=== PATIENT | female | born 1995 | race African-American/Black ===

== ENCOUNTER 2018-09-06 12:30 | Emergency (ER) | payer OTHER ==
[2018-09-06 12:50] VITALS: BP 101/62; PULSE 79; TEMP 98; BMI 23.1
[2018-09-06] MEDS ORDERED: SODIUM CHLORIDE 1,000 ML IV STA (14:20)
[2018-09-06] MEDS ORDERED: ONDANSETRON 4 MG/2 ML VIAL IVPUSH ONE (14:30)
--- NOTE | 2018-09-06 14:34 | PDOC ---
History of Present Illness - General Chief Complaint: Nausea/Vomiting Stated Complaint: DIZZINESS Time Seen by Provider: 09/06/18 14:24 History Source: Sibling Exam Limitations: No Limitations Past History - Travel Traveled outside of the country in the last 30 days: No Close contact w/someone who was outside of country & ill: No - Past Medical History Allergies/Adverse Reactions: Allergies Allergy/AdvReac Type Severity Reaction Status Date / Time shellfish derived Allergy Verified 09/06/18 12:46 Home Medications: Ambulatory Orders Cephalexin Monohydrate [Keflex -] 500 mg PO BID #14 capsule 09/06/18 Asthma: No Cancer: No Cardiac Disorders: No COPD: No Diabetes: No HTN: No Seizures: No Thyroid Disease: No - Immunization History Immunization Up to Date: Yes - Suicide/Smoking/Psychosocial Hx Smoking History: Never smoked Have you smoked in the past 12 months: No Hx Alcohol Use: No Drug/Substance Use Hx: No Hx Substance Use Treatment: No Review of Systems - Review of Systems Able to Perform ROS?: Yes Comments:: 09/06/18 18:34 CONSTITUTIONAL: Absent: fever, chills, diaphoresis, generalized weakness, malaise, loss of appetite HEENT: Absent: rhinorrhea, nasal congestion, throat pain, throat swelling, difficulty swallowing, mouth swelling, ear pain, eye pain, visual Changes CARDIOVASCULAR: Absent: chest pain, loss of consciousness, palpitations, irregular heart rate, peripheral edema RESPIRATORY: Absent: cough, shortness of breath, dyspnea with exertion, orthopnea, wheezing, stridor, hemoptysis GASTROINTESTINAL: Absent: abdominal pain, abdominal distension, nausea, vomiting, diarrhea, constipation, melena, hematochezia GENITOURINARY: Present: positive STD test. Absent: dysuria, frequency, urgency, hesitancy, hematuria, flank pain, genital pain MUSCULOSKELETAL: Present: back pain Absent: myalgia, arthralgia, joint swelling SKIN: Absent: rash, itching, pallor HEMATOLOGIC/IMMUNOLOGIC: Absent: easy bleeding, easy bruising, lymphadenopathy, frequent infections ENDOCRINE: Absent: unexplained weight gain, unexplained weight loss, heat intolerance, cold intolerance NEUROLOGIC: Absent: headache, focal weakness or paresthesias, dizziness, unsteady gait, seizure, mental status changes, bladder or bowel incontinence PSYCHIATRIC: Absent: anxiety, depression, suicidal or homicidal ideation, hallucinations. Is the patient limited Maori proficient: No *Physical Exam - Vital Signs Last Vital Signs Temp Pulse Resp BP Pulse Ox 98.0 F 79 18 101/62 100 09/06/18 12:47 09/06/18 12:47 09/06/18 12:47 09/06/18 12:47 09/06/18 12:47 - Physical Exam Comments: 09/06/18 18:36 GENERAL: Well developed, well nourished. Awake and alert. No acute distress. HEENT: Normocephalic, atraumatic. PERRLA, EOMI. No conjunctival pallor. Sclera are non- icteric. Moist mucous membranes. Oropharynx is clear. NECK: Supple. Full ROM. No JVD. Carotid pulses 2+ and symmetric, without bruits. No thyromegaly. No lymphadenopathy. CARDIOVASCULAR: Regular rate and rhythm. No murmurs, rubs, or gallops. Distal pulses are 2+ and symmetric. PULMONARY: No evidence of respiratory distress. Lungs clear to auscultation bilaterally. No wheezing, rales or rhonchi. ABDOMINAL: Soft. Non-tender. Non-distended. No rebound or guarding. No organomegaly. Normoactive bowel sounds. MUSCULOSKELETAL Normal range of motion at all joints. No bony deformities or tenderness. No CVA tenderness. EXTREMITIES: No cyanosis. No clubbing. No edema. No calf tenderness. SKIN: Warm and dry. Normal capillary refill. No rashes. No jaundice. NEUROLOGICAL: Alert, awake, appropriate. Cranial nerves 2-12 intact. No deficits to light touch and temperature in face, upper extremities and lower extremities. No motor deficits in the in face, upper extremities and lower extremities. Normoreflexic in the upper and lower extremities. Normal speech. Toes are down- going bilaterally. Gait is normal without ataxia. PSYCHIATRIC: Cooperative. Good eye contact. Appropriate mood and affect. ED Treatment Course - LABORATORY CBC & Chemistry Diagram: 09/06/18 14:39 09/06/18 14:39 *DC/Admit/Observation/Transfer Diagnosis at time of Disposition: Chlamydia contact, treated Low back pain Qualifiers: Chronicity: acute Back pain laterality: right Sciatica presence: without sciatica Qualified Code(s): M54.5 - Low back pain Qualifiers: Weeks of gestation: less than 8 weeks Qualified Code(s): Z3A.01 - Less than 8 weeks gestation of - Discharge Dispostion Disposition: HOME Condition at time of disposition: Stable Decision to Admit order: No - Prescriptions Prescriptions: Cephalexin Monohydrate [Keflex -] 500 mg PO BID #14 capsule - Referrals Referrals: Estella Bain NP [Primary Care Provider] - Fransisco Givens MD [Staff Physician] - - Patient Instructions Printed Discharge Instructions: DI for Chlamydia, DI for Low Back Pain Additional Instructions: Your evaluated for your back pain today. It is most likely muscular in nature. He may take Tylenol 650 mg every 6 hours as needed for pain. Your currently 6 weeks . The baby is in the uterus and has a heart rate of 124 bpm. You do not have an ectopic . Your also treated for your Chlamydia today. Your also having a UTI. Please take the Keflex as prescribed. Finish the entire dose and if you feel better. Please follow up with her LINE ERECTOR this week. Return to the ER for any new or worsening symptoms. - Post Discharge Activity Forms/Work/School Notes: Back to Work
[2018-09-06 15:09] LABS: BASO % 0.8 % (0-2.0); EOS % 1.2 % (0-4.5); HEMOGLOBIN 12.8 GM/dL (10.7-15.3); LYMPH % 29.7 % (8-40); MCH 29.8 pg (25.7-33.7); MCHC 33.5 g/dl (32.0-36.0); MEAN CELL VOLUME 88.8 fl (80-96); MONO % 9.5 % (3.8-10.2); NEUT % 58.8 % (42.8-82.8); PLATELET COUNT 248 K/MM3 (134-434); RBC 4.29 M/mm3 (3.60-5.2); RDW 12.3 % (11.6-15.6); WHITE BLOOD COUNT 5.4 K/mm3 (4.0-10.0)
[2018-09-06 15:18] LABS: EPI CELLS 14.3 /HPF (0-5/HPF); URINE APPEARANCE CLOUDY; URINE BACTERIA 1008.5 /hpf (NEGATIVE); URINE BILIRUBIN NEGATIVE (NEGATIVE); URINE CASTS 20 /lpf (0-8); URINE COLOR DK YELLOW; URINE GLUCOSE (UA) NEGATIVE (NEGATIVE); URINE KETONE 3+ (NEGATIVE); URINE LEUK ESTERASE 3+ (NEGATIVE); URINE NITRITE NEGATIVE (NEGATIVE); URINE PROTEIN TRACE (NEGATIVE); URINE RBC 3 /hpf (0-4); URINE WBC 33 /hpf (0-5)
[2018-09-06] MEDS ORDERED: ONDANSETRON 4 MG/2 ML VIAL ONE (15:27)
[2018-09-06 15:43] LABS: ALBUMIN 3.9 g/dl (3.4-5.0); ALK PHOS 47 U/L (45-117); ANION GAP 6 MMOL/L (8-16); BILIRUBIN,TOTAL 0.9 mg/dL (0.2-1); BLOOD UREA NITROGEN 8 mg/dL (7-18); CALCIUM 9.5 mg/dL (8.5-10.1); CHLORIDE 106 mmol/L (98-107); CO2 26 mmol/L (21-32); CREATININE 0.7 mg/dL (0.55-1.3); GLUCOSE,RANDOM 105 mg/dL (74-106); LIPASE 99 U/L (73-393); POTASSIUM 3.9 mmol/L (3.5-5.1); SGOT/AST 8 U/L (15-37); SGPT/ALT 15 U/L (13-61); SODIUM 137 mmol/L (136-145); TOT PROT 7.5 g/dl (6.4-8.2)
[2018-09-06] MEDS ORDERED: AZITHROMYCIN 500 MG TABLET PO ONE (16:07)
[2018-09-06] MEDS ORDERED: AZITHROMYCIN 250 MG TABLET ONE (16:10)
[2018-09-06] MEDS ORDERED: cefTRIAXone SODIUM 1 GM VIAL ONE (16:10)
[2018-09-06] MEDS ORDERED: CEFTRIAXONE 250 MG in DEXTROSE 5%-WATER - 50 ML IVPB ONE (16:31)
== END 2018-09-06 18:08 | disposition home or self-care (01) ==
LOC: JER 12:30
PROC: 3E0337Z Introduction of Electrolytic and Water Balance Substance into Peripheral Vein, Percutaneous Approach (ICD-10-PCS; principal; 2018-09-06)
PROC: 3E03329 Introduction of Other Anti-infective into Peripheral Vein, Percutaneous Approach (ICD-10-PCS; 2018-09-06)
PROC: 3E033GC Introduction of Other Therapeutic Substance into Peripheral Vein, Percutaneous Approach (ICD-10-PCS; 2018-09-06)
DX: O26.891 Other specified pregnancy related conditions, first trimester (principal); M54.5 Low back pain; O98.311 Other infections with a predominantly sexual mode of transmission complicating pregnancy, first trimester; A56.8 Sexually transmitted chlamydial infection of other sites; Z3A.01 Less than 8 weeks gestation of pregnancy
CPT/HCPCS: 36415; 76817-TC; 80053; 81003; 83690; 84702; 85025; 87086; 87491; 87591; 96361; 96365; 96375; 99283-25; J7030

== ENCOUNTER 2019-04-28 12:30 | Inpatient (IN) | payer OTHER ==
[2019-04-28] MEDS ORDERED: AMPICILLIN SODIUM 2 GM VIAL ONE (12:44)
[2019-04-28] MEDS ORDERED: LIDOCAINE HCL 1% PRESERVATIVE FREE - 30ML VIAL ONE (12:44)
[2019-04-28] MEDS ORDERED: OXYTOCIN 20 UNITS in 0.9% NS 20 UNIT/1,000 ML INFUS.BAG IV ONE ×2 (12:44→13:11)
[2019-04-28] MEDS: OXYTOCIN 20 UNITS in 0.9% NS 20 UNIT/1,000 ML INFUS.BAG IV SCH ×2 (13:29→19:30)
[2019-04-28] MEDS ORDERED: WITCH HAZEL 50% (TUCKS) 40 PAD/JAR PAD TP PRN (13:40)
[2019-04-28] MEDS ORDERED: BENZOCAINE 20% 57 GM BOTTLE TP PRN (13:40)
[2019-04-28] MEDS ORDERED: METHYLERGONOVINE MALEATE 0.2 MG/1 ML AMP IM PRN (13:40)
[2019-04-28] MEDS ORDERED: BISACODYL 10 MG SUPP.RECT RC PRN (13:40)
[2019-04-28] MEDS ORDERED: BENZOCAINE 28 GM HEMORRHOIDAL OINTMENT TP PRN (13:40)
--- NOTE | 2019-04-28 13:44 | HP ---
Past Medical History - Admission Chief Complaint: SROM History of Present Illness: 23yo @ 40+wks sent in from office, reported LOF 9pm, contractions No VB. +ctx. 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 Weeks Gestation by Dates: 40.1 ...EDC by Dates: 04/27/19 Heme/Onc: Yes: Anemia - Past Surgical History Past Surgical History: Yes: None Hx Myomectomy: No Hx Transabdominal Cerclage: No - Smoking History Smoking history: Never smoked Have you smoked in the past 12 months: No - Alcohol/Substance Use Hx Alcohol Use: No History of Substance Use: reports: None - Social History Usual Living Arrangement: Yes: With Parent History of Recent Travel: No Home Medications - Allergies Allergies/Adverse Reactions: Allergies Allergy/AdvReac Type Severity Reaction Status Date / Time shellfish derived Allergy Intermediate Swelling Verified 04/12/19 05:34 No Known Drug Allergies Allergy Verified 04/24/19 13:14 - Home Medications Home Medications: Ambulatory Orders Vitamins (Sjr) - 1 tab PO DAILY 01/14/19 Valacyclovir HCl [Valtrex -] 500 mg PO DAILY 04/28/19 Review of Systems - Review of Systems Constitutional: denies: No Symptoms, Chills, Diaphoresis, Fever, Lethargy, Loss of Appetite, Malaise, Night Sweats, Unintentional Wgt. Loss, Weakness, Other Cardiovascular: denies: No Symptoms, Chest Pain, Edema, Palpitations, Shortness of Breath, Other Respiratory: denies: No Symptoms, Cough, Exercise Intolerance, Hemoptysis, Orthopnea, PND, Snoring, SOB, SOB on Exertion, Wheezing, Other Gastrointestinal: denies: No Symptoms, Abdominal Pain, Bloating, Constipation, Diarrhea, Dysphagia, Indigestion, Melena, Nausea, Rectal Bleeding, Vomiting, Vomiting Blood, Other Physical Exam - Maternity Constitutional: Yes: Well Nourished, No Distress, Calm - Abdominal Exam/OB Number of Fetuses: Single Presentation: Vertex Contractions: Yes Regularity: Regular Intensity: Moderate Monitor Mode: External Heart Rate Location: [facility] Category: I Accelerations: Non-Uniform Decelerations: None - Vaginal Exam/OB Vaginal Bleediing: No Dilatation (cm): 8-9 Effacement (%): 101 Amniotic Membrane Status: Ruptured Nitrazine Test: Positive Amniotic Fluid: Yes: Meconium Stained Meconium: Light Presentation: Vertex/Position Station: -1 - Physical Exam Edema: No Problem List - Problems (1) Uterine contractions Code(s): [id number] - Assessment/Plan 23yo @ 40+wks here in labor Admit to L&D IVFs Labs Anticipate imminent Glen Rojo MD
[2019-04-28] MEDS ORDERED: ELECTROLYTE-148 SOLN 1,000 ML IV SCH (13:45)
--- NOTE | 2019-04-28 13:47 | PN ---
Delivery - Delivery Vaginal Delivery: Spontaneous Type of Anesthesia: Local Episiotomy/Laceration: Midline, 1st degree EBL (cc): 350 Delivery, Single - Stages of Labor Placenta: Yes: Spontaneous - Condition of Automotive Sales Representative/Airport Screener Present: No Gender: Male Position: Right, OA - 1 Minute Total Score: 9 5 Minutes Total Score: 9 Remarks - Remarks Remarks: of VMI from KARINA position. No nuchal. + meconium. No anesthesia. 40 weeks. Spontaneous delivery of anterior shoulder. placed on maternal abdomen. Cord clamped and cut. Weight pending to allow sufficient skin to skin. Apgars 9/ 9. Spontaneous delivery of intact placenta, 3VC. Fundus firm. Perineum inspected , first degree noted. Lidocaine injected, repaired with 3-0 vicryl. Hemostasis noted. Mother and baby doing well. Agustina Rojo MD
[2019-04-28] MEDS ORDERED: AMPICILLIN - 2 GM in SODIUM CHLORIDE 100 ML IVPB ONE (14:01)
[2019-04-28 14:17] VITALS: BMI 32.1
[2019-04-28 14:23] LABS: BASO % 0.5 % (0-2.0); EOS % 0.6 % (0-4.5); HEMATOCRIT 35.9 % (32.4-45.2); HEMOGLOBIN 11.5 GM/dL (10.7-15.3); LYMPH % 15.6 % (8-40); MCH 28.3 pg (25.7-33.7); MCHC 32.1 g/dl (32.0-36.0); MEAN CELL VOLUME 88.1 fl (80-96); MEAN PLT VOLUME 9.5 fl (7.5-11.1); MONO % 5.9 % (3.8-10.2); NEUT % 77.4 % (42.8-82.8); PLATELET COUNT 207 K/MM3 (134-434); RBC 4.08 M/mm3 (3.60-5.2); RDW 13.8 % (11.6-15.6); WHITE BLOOD COUNT 11.2 K/mm3 (4.0-10.0)
[2019-04-28 14:39] LABS: INR 0.94 (0.83-1.09); PROTHROMBIN TIME (PATIENT) 11.1 SEC (9.7-13.0)
[2019-04-28 14:41] LABS: ACTIVATED PTT 26.7 SECONDS (25.2-36.5)
[2019-04-28 14:44] LABS: CALCIUM 9.2 mg/dL (8.5-10.1); CREATININE 0.8 mg/dL (0.55-1.3); POTASSIUM 3.8 mmol/L (3.5-5.1)
[2019-04-28] MEDS: IBUPROFEN 600 MG TABLET (FP) PO PRN (15:56)
[2019-04-28] MEDS: ACETAMINOPHEN 325 MG TABLET (FP) PO PRN (15:57)
[2019-04-29] MEDS: IBUPROFEN 600 MG TABLET (FP) PO PRN (01:14)
[2019-04-29] MEDS: ACETAMINOPHEN 325 MG TABLET (FP) PO PRN (01:16)
[2019-04-29 08:00] VITALS: BP 110/61; PULSE 70; TEMP 98.3
[2019-04-29 08:09] LABS: BASO % 0.4 % (0-2.0); EOS % 1.4 % (0-4.5); HEMATOCRIT 30.9 % (32.4-45.2); HEMOGLOBIN 10.1 GM/dL (10.7-15.3); LYMPH % 18.8 % (8-40); MCH 28.6 pg (25.7-33.7); MCHC 32.7 g/dl (32.0-36.0); MEAN CELL VOLUME 87.7 fl (80-96); MEAN PLT VOLUME 9.7 fl (7.5-11.1); MONO % 9.7 % (3.8-10.2); NEUT % 69.7 % (42.8-82.8); PLATELET COUNT 192 K/MM3 (134-434); RBC 3.52 M/mm3 (3.60-5.2); RDW 13.4 % (11.6-15.6)
--- NOTE | 2019-04-29 09:36 | PN ---
Post Progress Note - Subjective Subjective: Pain controlled. Tolerating po. Ambulating w/o difficulty Type of Delivery: Vital Signs: Vital Signs Temperature 98.3 F 04/29/19 07:59 Pulse Rate 70 04/29/19 07:59 Respiratory Rate 18 04/29/19 07:59 Blood Pressure 110/61 04/29/19 07:59 O2 Sat by Pulse Oximetry (%) 100 04/28/19 15:10 Uterus: Yes: Fundus below umbilicus Incision: Yes: Dressing dry and intact Abdomen/GI: Yes: Abdomen soft Lochia: Yes: Rubra Lochia, amount: Small Extremities: Yes: Calves non-tender Perineum: Yes: Laceration Activity: Ambulating - Labs Labs: CBC WBC 12.0 K/mm3 (4.0-10.0) H 04/29/19 06:49 RBC 3.52 M/mm3 (3.60-5.2) L 04/29/19 06:49 Hgb 10.1 GM/dL (10.7-15.3) L 04/29/19 06:49 Hct 30.9 % (32.4-45.2) L 04/29/19 06:49 MCV 87.7 fl (80-96) 04/29/19 06:49 MCH 28.6 pg (25.7-33.7) 04/29/19 06:49 MCHC 32.7 g/dl (32.0-36.0) 04/29/19 06:49 RDW 13.4 % (11.6-15.6) 04/29/19 06:49 Plt Count 192 K/MM3 (134-434) 04/29/19 06:49 MPV 9.7 fl (7.5-11.1) 04/29/19 06:49 Absolute Neuts (auto) 8.4 K/mm3 (1.5-8.0) H 04/29/19 06:49 Neutrophils % 69.7 % (42.8-82.8) 04/29/19 06:49 Lymphocytes % 18.8 % (8-40) D 04/29/19 06:49 Monocytes % 9.7 % (3.8-10.2) 04/29/19 06:49 Eosinophils % 1.4 % (0-4.5) D 04/29/19 06:49 Basophils % 0.4 % (0-2.0) 04/29/19 06:49 Nucleated RBC % 0 % (0-0) 04/29/19 06:49 Problem List - Problems (1) Uterine contractions Code(s): [id number] - Assessment/Plan 23yo s/p , PPD#1 Routine PP care OOB, ambulate Labs reviewed, normal D/C to home PPD#2 Glen Rojo MD
[2019-04-29] MEDS ORDERED: PRENATAL VITAMINS W/ FOLIC ACID TABLET (FP) PO SCH (10:00)
--- NOTE | 2019-04-29 10:35 | DS ---
Physical Examination Vital Signs: Vital Signs Temperature 98.3 F 04/29/19 07:59 Pulse Rate 70 04/29/19 07:59 Respiratory Rate 18 04/29/19 07:59 Blood Pressure 110/61 04/29/19 07:59 O2 Sat by Pulse Oximetry (%) 100 04/28/19 15:10 Constitutional: Yes: Well Nourished, No Distress, Calm Eyes: Yes: WNL, Conjunctiva Clear, EOM Intact HENT: Yes: WNL, Atraumatic, Normocephalic Neck: Yes: WNL, Supple, Trachea Midline Cardiovascular: Yes: WNL, Regular Rate and Rhythm Respiratory: Yes: WNL, Regular, CTA Bilaterally Gastrointestinal: Yes: WNL, Normal Bowel Sounds Musculoskeletal: Yes: WNL Extremities: Yes: WNL Edema: No Integumentary: Yes: WNL Neurological: Yes: WNL, Alert, Oriented ...Motor Strength: WNL Psychiatric: Yes: WNL Labs: CBC, BMP 04/29/19 06:49 04/28/19 13:48 Discharge Summary Problems reviewed: Yes Reason For Visit: LABOR ADMISSION Current Active Problems Uterine contractions (Acute) Hospital Course: Patient presented in active labor with SROM over 12 hours prior to arrival to L& D She had an uncomplicated She met all milestones Her baby was transferred to [facility] on Day 1 2/2 stridor Patient requested discharge home on PPD#1 to accompany baby to [facility] Glen Rojo MD Condition: Stable - Instructions Diet, Activity, Other Instructions: Regular Diet Follow up in 4-6 weeks for your visit Referrals: Agustina Rojo MD [Staff Physician] - Disposition: HOME - Home Medications Comprehensive Discharge Medication List: Ambulatory Orders Vitamins (Sjr) - 1 tab PO DAILY 01/14/19 Valacyclovir HCl [Valtrex -] 500 mg PO DAILY 04/28/19 Ibuprofen 600 mg PO Q6H PRN #30 tablet 04/29/19
[2019-04-29] MEDS ORDERED: SENNOSIDES/DOCUSATE COMBO (SENNA PLUS) TABLET (UD) PO PRN (22:00)
== END 2019-04-29 14:15 | disposition home or self-care (01) | DRG 560 ==
LOC: JLDR 12:30 → J3W 15:28
PROVIDERS: ADMIT Obstetrics & Gynecology; ATTEND Obstetrics & Gynecology
PROC: 0HQ9XZZ Repair Perineum Skin, External Approach (ICD-10-PCS; principal; 2019-04-28)
PROC: 10E0XZZ Delivery of Products of Conception, External Approach (ICD-10-PCS; 2019-04-28)
DX: O48.0 Post-term pregnancy (principal); Z3A.40 40 weeks gestation of pregnancy; O70.0 First degree perineal laceration during delivery; Z37.0 Single live birth
CPT/HCPCS: 36415; 59409; 80048; 85025; 85610; 85730; 86593; 86850; 86900; 86901

== ENCOUNTER 2021-09-22 11:12 | Emergency (ER) | payer OTHER ==
[2021-09-22 11:36] VITALS: BP 135/95; TEMP 97.3; BMI 26.6
[2021-09-22] MEDS ORDERED: morphine CARPU-JECT 2 MG/1 ML DISP.SYRIN IVPUSH ONE (12:04)
[2021-09-22] MEDS ORDERED: SODIUM CHLORIDE 0.9% 500 ML INFUS.BAG IV ONE (12:05)
[2021-09-22 12:22] VITALS: PULSE 80
[2021-09-22 13:12] LABS: BASO % 0.6 % (0-2.0); EOS % 5.2 % (0-4.5); HEMATOCRIT 37.4 % (32.4-45.2); HEMOGLOBIN 12.3 GM/dL (10.7-15.3); LYMPH % 26.5 % (8-40); MCH 29.1 pg (25.7-33.7); MCHC 32.9 g/dl (32.0-36.0); MEAN CELL VOLUME 88.3 fl (80-96); MEAN PLT VOLUME 9.1 fl (7.5-11.1); MONO % 8.5 % (3.8-10.2); NEUT % 59.2 % (42.8-82.8); PLATELET COUNT 242 10^3/uL (134-434); RBC 4.24 M/mm3 (3.60-5.2); RDW 12.4 % (11.6-15.6); WHITE BLOOD COUNT 5.1 K/mm3 (4.0-10.0)
[2021-09-22 13:25] LABS: EPI CELLS >36 /uL (0-25.1); HYALINE CASTS 17 /uL (0-3.1); URINE APPEARANCE CLOUDY; URINE BACTERIA 5343 /uL (0-1359); URINE BILIRUBIN 1+ (NEGATIVE); URINE COLOR DK YELLOW; URINE GLUCOSE (UA) NEGATIVE (NEGATIVE); URINE KETONE 2+ (NEGATIVE); URINE LEUK ESTERASE 2+ (NEGATIVE); URINE NITRITE NEGATIVE (NEGATIVE); URINE PROTEIN 1+ (NEGATIVE); URINE RBC 17 /uL (0-23.9); URINE WBC 564 /uL (0-25.8)
[2021-09-22 13:26] LABS: HCG,QUALITATIVE URINE Negative
[2021-09-22 14:24] LABS: CALCIUM 9.3 mg/dL (8.5-10.1)
[2021-09-22 14:25] LABS: ALBUMIN 4.2 g/dl (3.4-5.0); BLOOD UREA NITROGEN 10.3 mg/dL (7-18)
[2021-09-22 14:28] LABS: CREATININE 0.7 mg/dL (0.55-1.3)
[2021-09-22 14:30] LABS: BILIRUBIN,TOTAL 1.2 mg/dL (0.2-1); TOT PROT 7.6 g/dl (6.4-8.2)
== END 2021-09-22 14:52 | disposition home or self-care (01) ==
LOC: JER 11:12
PROC: 3E033NZ Introduction of Analgesics, Hypnotics, Sedatives into Peripheral Vein, Percutaneous Approach (ICD-10-PCS; principal; 2021-09-22)
DX: R10.32 Left lower quadrant pain (principal)
CPT/HCPCS: 36415; 76830-TC; 80053; 81003; 84703; 85025; 99284-25

== ENCOUNTER 2022-06-26 07:39 | Emergency (ER) | payer OTHER ==
[2022-06-26 07:56] VITALS: TEMP 97.9; BMI 25.8
[2022-06-26] MEDS ORDERED: ACETAMINOPHEN 1000 MG/100 ML BAG IVPB ONE (08:07)
[2022-06-26] MEDS ORDERED: METOCLOPRAMIDE HCL INJECTION 10 MG/2 ML VIAL IVPUSH ONE (08:07)
[2022-06-26] MEDS ORDERED: MAG HYDROX/AL HYDROX/SIMETH 30 ML UNIT-DOSE CUP PO ONE (08:07)
[2022-06-26] MEDS ORDERED: SODIUM CHLORIDE 0.9% 500 ML INFUS.BAG IV ONE (08:08)
[2022-06-26 08:37] LABS: PH,URINE 7.5 (5.0-8.0); URINE APPEARANCE CLEAR; URINE BILIRUBIN NEGATIVE (NEGATIVE); URINE COLOR YELLOW; URINE GLUCOSE (UA) NEGATIVE (NEGATIVE); URINE KETONE TRACE (NEGATIVE); URINE LEUK ESTERASE NEGATIVE (NEGATIVE); URINE NITRITE NEGATIVE (NEGATIVE); URINE PROTEIN TRACE (NEGATIVE)
[2022-06-26] MEDS ORDERED: METOCLOPRAMIDE HCL INJECTION 10 MG/2 ML VIAL ONE (08:38)
[2022-06-26] MEDS ORDERED: ACETAMINOPHEN INJECTION 100 ML IVPB ONE (08:38)
[2022-06-26 08:39] LABS: BASO % 0.7 % (0-2.0); EOS % 2.6 % (0-4.5); HEMATOCRIT 37.9 % (32.4-45.2); HEMOGLOBIN 12.6 GM/dL (10.7-15.3); LYMPH % 43.8 % (8-40); MCH 29.2 pg (25.7-33.7); MCHC 33.3 g/dl (32.0-36.0); MEAN CELL VOLUME 87.6 fl (80-96); MONO % 11.8 % (3.8-10.2); NEUT % 41.1 % (42.8-82.8); PLATELET COUNT 232 10^3/uL (134-434); RBC 4.33 M/mm3 (3.60-5.2); RDW 13.4 % (11.6-15.6); WHITE BLOOD COUNT 3.5 K/mm3 (4.0-10.0)
[2022-06-26] MEDS ORDERED: MAG HYDROX/AL HYDROX/SIMETH 30 ML UNIT-DOSE CUP ONE (08:39)
[2022-06-26 08:40] LABS: HCG,QUALITATIVE URINE Negative
[2022-06-26 08:52] LABS: CALCIUM 8.2 mg/dL (8.5-10.1)
[2022-06-26 08:54] LABS: ALBUMIN 3.4 g/dl (3.4-5.0)
[2022-06-26 08:56] LABS: CREATININE 0.6 mg/dL (0.55-1.3)
[2022-06-26 08:57] LABS: BILIRUBIN,TOTAL 0.4 mg/dL (0.2-1); TOT PROT 6.8 g/dl (6.4-8.2)
[2022-06-26 11:32] VITALS: BP 110/70; PULSE 60; RESP 18
== END 2022-06-26 11:51 | disposition home or self-care (01) ==
LOC: JER 07:39
PROC: 3E0333Z Introduction of Anti-inflammatory into Peripheral Vein, Percutaneous Approach (ICD-10-PCS; principal; 2022-06-26)
PROC: 3E033GC Introduction of Other Therapeutic Substance into Peripheral Vein, Percutaneous Approach (ICD-10-PCS; 2022-06-26)
DX: R11.2 Nausea with vomiting, unspecified (principal); G43.909 Migraine, unspecified, not intractable, without status migrainosus
CPT/HCPCS: 0241U-QW; 36415; 76705-TC; 80053; 81003; 84439; 84443; 84703; 85025; 87086; 99284-25